=== PATIENT | male | born 1950 | race Caucasian/White ===

== ENCOUNTER → 2020-02-07 | Outpatient (CLI) | payer OTHER ==
[~2020-02-07] VITALS: Ht 180.3 cm; Wt 102.1 kg
[~2020-02-07] MED LIST: ALLEGRA60 MG; AMPYRA10 MG PO; B COMPLEX1 EACH PO; BUPROPION XL300 MG PO; CALCIUM-VITAMI1 EACH PO; FINASTERIDE5 MG PO; FISHOIL; FLEXERIL PO; FLOMAX; LEXAPRO; LINZESS290 MCG PO; LOSARTAN-HCTZ1 EACH PO; LYRICA 50 MG50 MG PO; MULTIVITAMINS; MYRBETRIQ50 MG PO; NORCO 5-325 TA1 EACH PO; REQUIP5 MG PO; RITALIN20 MG PO; TESTIM5 GM
--- NOTE | ~2020-02-07 | HPC ---
[facility] [place] [address] PAIN MANAGEMENT CONSULTATION Name: SAVANA CAPELLAN Room #: REG [facility] Coco#: [id number] Admission: 02/07/20 Attend Phys: Alfredo Mendez DO Discharge: Date of : 46 Report #: [id number] THIS REPORT FOR: cc: Satish Alvarez,Alfredo Campbell DO ~ CC: Destiny Alvarez DATE OF SERVICE: 02/07/2020 CHIEF COMPLAINT: Low back pain, right lower extremity pain with paresthesias. HISTORY OF PRESENT ILLNESS: As you know, the patient is a very pleasant 70-year-old male who has been referred to our service for chronic lumbar radiculopathy. The patient states the pain began somewhere in spring. He denies any specific injury or trauma that may have led to symptom development. Originally, he believes his symptoms were related to his multiple sclerosis. He continues to experience symptoms more consistent with lumbar radiculopathy. He trialed conservative treatment options, which unfortunately failed. He sought evaluation through his nurse practitioner, Destiny Courtney, who referred the patient to our clinic after undergoing MRI of the lumbar spine, which showed changes consistent with the patient's pathology and distribution of pain. The patient has trialed conservative [id number]-[id number] medications, rest and relaxation without efficacy. He was put on medications for pain control, but this did not gain much in the way of analgesic benefit. The patient indicates today pain is continuous. He describes the pain as burning, sharp, numbness and tingling. Places current pain score at 5-6/10, daily average of 5-6/10, worst the pain has been is 7/10. The patient states that being on his feet and standing any length of time exacerbates symptoms, lying down tends to improve pain. He has been referred to our service to discuss treatment options for suspected right lumbar radiculopathy. PAST MEDICAL HISTORY: 1. Hypertension. 2. Melanoma. 3. Chronic constipation. 4. Multiple sclerosis. PAST SURGICAL HISTORY: 1. Excision of melanoma. 2. Sacroplasty. SOCIAL HISTORY: The patient denies tobacco, alcohol, IV or illicit drug use. [address] [address] PAIN MANAGEMENT CONSULTATION Name: SAVANA CAPELLAN Room #: REG [facility].#: [id number] Admission: 02/07/20 Attend Phys: lAfredo Mendez DO Discharge: Date of : 46 Report #: [id number] He is retired, but is working part-time at the [employer]. He is working, not receiving workmen's compensation nor is trying to obtain discrete benefits. He is not in litigation in regards to pain. He is accompanied by his , present in room today. REVIEW OF SYSTEMS: Positive for fatigue and weakness, wearing corrective eyewear, blurred and double vision secondary to his MS, cataracts, constipation interspersed with loose stool, frequent urination, nocturia, change of force or stream in urination, sexual difficulty, numbness and tingling sensations, memory loss, nervousness, depression and bruising tendencies. All other review of systems negative per 12-point review of systems other than those listed in history of present illness. Pain impact score 48/70 indicating moderate interference to severe interference of daily activities secondary to pain. ALLERGIES: No known drug allergies. CURRENT MEDICATIONS: Finasteride 5 mg per day, calcium carbonate 1 tab per day, vitamin B complex 1 tab per day, Ritalin 20 mg b.i.d., Requip 5 mg once a day, pregabalin 50 mg twice a day, Ampyra 10 mg twice a day, bupropion XL 300 mg once a day, Myrbetriq 50 mg once a day, losartan/hydrochlorothiazide 50/12.5 mg once a day, Linzess 290 mcg per day, multivitamin 1 tab per day, tamsulosin 0.4 mg once a day, fexofenadine 60 mg once a day. PQRS: The patient has osteoarthritic changes of the lumbar spine, bilateral shoulders. No rheumatoid arthritis. The patient is placing current pain score at 5-6/10. He is a fall risk, but has not had a fall in the last 3 months. He is not on blood thinners, but is treated for hypertension. He is on chronic opioids, has a low opioid addiction potential based on our assessment tool. Pain impact score of 48/70, moderate to severe interference of daily activities secondary to pain. IMAGING: MRI of the lumbar spine obtained 11/23/2018 shows multilevel degenerative changes and facet arthropathy. There is [id number]-[id number] left foraminal stenosis at L1-2, severe right foraminal stenosis at L3-4, severe right foraminal stenosis at L4-5. There is evidence of bilateral sacral fractures with evidence of kyphoplasty at S1-2. PHYSICAL EXAMINATION: VITAL SIGNS: Blood pressure 136/66, pulse is 96, respiratory rate 18 and unlabored. The patient is 97% on room air. Height 5 feet 11 inches tall, weight 225 pounds, BMI calculated at 31.4. GENERAL: Well-developed, well-nourished, well-hydrated 70-year-old male who appears stated age. He is placing current pain score anywhere from 5-6/10. HEENT: Normocephalic, atraumatic. Pupils equal, round and reactive. Speech is [facility] [address] [place] [address] PAIN MANAGEMENT CONSULTATION Name: SAVANA CAPELLAN Room #: REG [facility]#: [id number] Admission: 02/07/20 Attend Phys: Alfredo Mendez DO Discharge: Date of : 46 Report #: [id number] fluent for patient. NEUROLOGIC: Cranial nerves 2-12 appear grossly intact. LUNGS: Appear clear. He is able to complete sentences. There are no active wheezes, rhonchi or rales. CARDIOVASCULAR: Regular. No appreciable gallop. ABDOMEN: Soft, nontender. EXTREMITIES: Show no clubbing, no cyanosis. No appreciable edema. MUSCULOSKELETAL: Lower extremity strength is decreased bilaterally. This appears to be related to his underlying disease process. He does have an unusual gait, which appears to be more shuffling in nature consistent with multiple sclerosis. Seated straight leg raising positive on the right. Supine straight leg raising positive on the right. Efrain's test is negative. Modified Gaenslen's positive for axial low back pain. Ankle clonus negative. Babinski is negative. Lumbar provocation testing is met with increasing axial back pain. ASSESSMENT: 1. Lumbar radiculopathy. 2. 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 3. Severe facet arthropathy of the lumbar spine. 4. Lumbosacral spondylosis with radiculopathy. 5. Chronic intractable pain. PLAN: 1. Based on today's physical exam and history the patient has provided, the description the patient uses in regards to pain as well as the distribution of symptoms involving the right lower extremity, it would appear that the patient is suffering from lumbar radiculopathy secondary to foraminal stenosis. He has some mild central canal stenosis based on his imaging of 2018. Given the fact that he has not had any significant change in his medical history and no recent falls, I am not concerned of significant worsening of the central canal stenosis, though he had severe foraminal stenosis nearly a year ago and this has likely progressed and thus the source of the patient's symptoms. After we discussed the findings of his MRI and how they correlate to his symptoms, we then discussed treatment options. The following was discussed with the patient today. We discussed physical therapy, stretching exercises, core strengthening as a treatment option. We discussed medication management, adding neuropathic pain medication such as amitriptyline, nortriptyline, Cymbalta, Lyrica or gabapentin, but understanding that these medications could also contribute to his underlying multiple sclerosis effects and potentially worsen his movement disorder and potentially even worsen cognition. We also discussed lumbar epidural injection, for which the patient was referred to our clinic. We discussed spinal cord stimulator therapy and ultimately surgical options. After reviewing risks and benefits of all proposed treatment options, the patient chose to begin with lumbar epidural injection under fluoroscopic guidance. [address] [address] PAIN MANAGEMENT CONSULTATION Name: SAVANA CAPELLAN Room #: REG [facility]#: [id number] Admission: 02/07/20 Attend Phys: Alfredo Mendez DO Discharge: Date of : 46 Report #: [id number] 2. The patient was advised risks and benefits of a lumbar epidural injection. These risks include but are not necessarily limited to bleeding, bruising, infection, worsening pain, no relief of pain, also risk of temporary or permanent muscle weakness, temporary or permanent nerve damage, possible paralysis and . The patient states he understood and wished to proceed. 3. I did provide the patient with information about spinal cord stimulator technology today. I gave information both in written and digital form that he could review at his earliest convenience. The patient and I will discuss this at followup visit if he wishes to progress to the possibility of trial implantation. He wishes to trial the more conservative approach initially. If this is ineffective, then look forward to a more aggressive treatment stance. 4. We will see the patient back in followup visit on an as needed basis for possible next in the series of epidural injections. We are hopeful the patient will see good and prolonged benefit with today's procedure. 5. We wish to thank nurse practitioner, Destiny Courtney, for the opportunity to see this patient in consultation. We will keep you apprised of his response to treatment as we address lumbar radicular symptoms secondary to severe neural foraminal stenosis. Again, we wish to thank you for the opportunity to see this patient in consultation. PROCEDURE NOTE DESCRIPTION OF PROCEDURE: L5-S1 right paramedian epidural steroid injection under fluoroscopic guidance. This is the first procedure of the first series that the patient is undergoing. After obtaining written consent, the patient was taken back to the fluoroscopy suite, placed in a prone position with pillow under the abdomen to decrease lumbar lordosis. The skin overlying the lumbosacral area was then prepped and draped in aseptic fashion. The L5-S1 vertebral interspace was then identified by AP fluoroscopy. The skin and subcutaneous tissue overlying the target site of injection was anesthetized with 3 mL 1% lidocaine. A 20-gauge 3-1/2 inch Tuohy needle was then advanced under fluoroscopic guidance towards the epidural space using a right paramedian approach. The epidural space was identified using loss of resistance to air technique. After negative aspiration for heme or cerebrospinal fluid, a total of 1 mL of Omnipaque was injected. A lumbar epidurogram was confirmed using both AP and lateral fluoroscopy. After negative aspiration for heme or cerebrospinal fluid, 5 mL of a solution containing 2 mL 40 mg per mL, 80 mg total triamcinolone along with 3 mL of lidocaine 1% was injected in increments. Contrast spread was noted posterior epidural space. The needle was then retracted approximately half way and needle tract flushed with 1 mL of 1% lidocaine. Needle was then removed. [facility] [place] [address] PAIN MANAGEMENT CONSULTATION Name: CAPELLAN,SAVANA Verito Room #: REG [facility]#: [id number] Admission: 02/07/20 Attend Phys: Alfredo Mendez DO Discharge: Date of : 46 Report #: [id number] There were no apparent sensory or motor deficits in the lower extremity following the procedure. A sterile bandage was placed over the injection site. The heart rate, pulse, oximetry and blood pressure were continuously monitored after the procedure. There were no apparent complications. The patient tolerated the procedure well and was carefully escorted to the recovery room in stable condition. There were no apparent complications. After meeting discharge criteria, the patient was then discharged home. By: [id number] Alfredo Mendez DO /nt
[2020-02-07 08:29] VITALS: BP 136/66
--- NOTE | 2020-02-07 08:31 | NUR ---
Pain Clinic Assessment: 1. History of Osteoarthritis: Not Applicable History of Rheumatoid Arthritis: Not Applicable 2. Height: 5 ft. 11 in. 180.3 cm. Weight: 225.0 lb. oz. 102.060 kg. Patient's BMI: 31.4 3. Vital Signs: BP: 136/66 Pulse: 96 Resp: 18 Temp: 02 Sat: 97 ECG Mon: 4. Pain Intensity: 5-6 5. Fall Risk: Dizziness: Needs help standing or walking: Fallen in the last 3 months: Fall risk comments: 6. Patient on Blood Thinner: None 7. History of Hypertension: Y 8. Opioid Therapy greater than 6 weeks: Y Opiate Contract Signed: 9. Risk Assessment Tool Provided: LOW-3 10. Functional Assessment Tool: 48/ 11. Recreational Drug Use: Never Drug Type: Tobacco Use: Never Smoker Tobacco Type: Amount or Packs/day: How Many Years: Alcohol Use: No Frequency: Quant:
== END | disposition home or self-care (01) ==
LOC: PAIN 06:40
PROVIDERS: ATTEND Anesthesiology Pain Medicine
DX: M47.27 Other spondylosis with radiculopathy, lumbosacral region (principal); M48.061 Spinal stenosis, lumbar region without neurogenic claudication; M47.26 Other spondylosis with radiculopathy, lumbar region; G89.29 Other chronic pain; G35 Multiple sclerosis; I10 Essential (primary) hypertension; M19.90 Unspecified osteoarthritis, unspecified site; Z98.890 Other specified postprocedural states; Z87.891 Personal history of nicotine dependence; Z79.891 Long term (current) use of opiate analgesic; Z85.820 Personal history of malignant melanoma of skin; Z79.899 Other long term (current) drug therapy

== ENCOUNTER → 2020-03-21 | Outpatient (CLI) | payer OTHER ==
[~2020-03-21] VITALS: Ht 180.3 cm; Wt 98.4 kg
[~2020-03-21] MED LIST changes: +MOBIC15 MG PO
--- NOTE | ~2020-03-21 | HPC ---
[address] [address] PAIN MANAGEMENT CONSULTATION Name: SAVANA CAPELLAN Room #: REG [facility]#: [id number] Admission: 03/21/20 Attend Phys: Alfredo Mendez DO Discharge: Date of : 46 Report #: [id number] CC: Destiny Alvarez DATE OF SERVICE: 03/27/2020 CHIEF COMPLAINT: Low back pain, right lower extremity pain and paresthesias. HISTORY OF PRESENT ILLNESS: As you know, the patient is a 70-year-old male who has returned today in followup visit to undergo lumbar epidural injection under fluoroscopic guidance. The most recent epidural injection provided on 02/07/2020 gave improvement in symptoms of 75%. Unfortunately, his symptoms recurred. He returns today to undergo next in the series of epidural injections. He also wishes to discuss further spinal cord stimulator therapy. He has been deemed a nonsurgical candidate given his concomitant illnesses. He returns to discuss the spinal cord stimulator and undergo next in the series of lumbar epidural injections. ALLERGIES: No known drug allergies. CURRENT MEDICATIONS: See extensive list in chart. SOCIAL HISTORY: The patient denies tobacco, alcohol, IV or illicit drug use. He is retired, but is working part-time at [employer]. He is accompanied by his , present in room today. IMAGING: No new imaging available. PQRS: The patient has osteoarthritic changes of the lumbar spine, bilateral shoulders. No rheumatoid arthritis. He is placing his current pain score 5-6/10, not a fall risk, has not had a fall in last 3 months, not on blood thinners, but is treated for hypertension. He is on chronic opioids with a low opiate addiction potential. Pain impact 48/70, severe interference of daily activities secondary to pain. PHYSICAL EXAMINATION: VITAL SIGNS: Blood pressure 140/72, pulse 50, respiratory rate 16 and unlabored. The patient is 96% on room air. Height 5 feet 11 inches tall, weight 217 pounds, BMI calculated 30.3. GENERAL: A well-developed, well-nourished, well-hydrated 70-year-old male appearing stated age, pain is rated 5-6/10. HEENT: Normocephalic, atraumatic. EXTREMITIES: Show no clubbing, no cyanosis. No appreciable edema. MUSCULOSKELETAL: The patient has lower extremity strength decreased bilaterally. This is due to deconditioning or his underlying disease process. He has an unusual gait, which appears more shuffling in nature consistent with multiple sclerosis. Seated straight leg raising is positive again on the right. Supine straight leg raising positive on the right. Gait does appear to be antalgic favoring that right lower extremity. Modified Gaenslen's positive for axial low back pain. ASSESSMENT: 1. Symptomatic lumbar radiculopathy. 2. 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 3. Severe facet arthropathy of the lumbar spine. 4. Lumbosacral spondylosis with radiculopathy. 5. Chronic intractable pain. PLAN: 1. The patient returns today in followup visit requesting to undergo next in the series of lumbar epidural injections. He reported a 75% improvement in overall pain with previous epidural injection, but unfortunately his symptoms recurred. He returns to undergo the next in the series. He has been advised risks and benefits of the procedure, states understood and wished to proceed. 2. The patient was given information about spinal cord stimulator therapy and its risks and benefits. The patient was given information both in digital and written form to review on his own. He is interested in moving forward with prior authorizations to undergo the procedure as he is deemed a nonsurgical candidate given his underlying multiple sclerosis. He does wish to move forward with a trial to determine if this device could provide him improved analgesic benefit. The patient was advised he will need to follow up with Psychiatry. Once he has completed his psychiatric evaluation and he is deemed an appropriate psychological candidate to undergo a spinal cord stimulator, we would have him return to review those findings and then begin the scheduling process. He was given the names and numbers of psychiatrists in the area to be evaluated. Once he has this scheduled, he is to contact our clinic, so we can monitor for the results of that consultation. No medication changes made at today's visit. The patient will continue current medical therapy as prior prescribed. 4. We will see the patient back in followup visit once he has completed the psychiatric evaluation, we will review those findings. If he is deemed an appropriate candidate from a psychiatric standpoint, we will then move forward with scheduling a trial implantation. PROCEDURE NOTE: DESCRIPTION OF PROCEDURE: L5-S1 right paramedian epidural steroid injection under fluoroscopic guidance. This is the second procedure of the first series that the patient is undergoing. After obtaining written consent, the patient was taken back to the fluoroscopy suite, placed in a prone position with pillow under the abdomen to decrease lumbar lordosis. The skin overlying the lumbosacral area was then prepped and draped in aseptic fashion. The L5-S1 vertebral interspace was then identified by AP fluoroscopy. The skin and subcutaneous tissue overlying the target site of injection was anesthetized with 3 mL 1% lidocaine. A 20-gauge 3-1/2 inch Tuohy needle was then advanced under fluoroscopic guidance towards the epidural space using a left parasagittal approach. The epidural space was identified using loss of resistance to air technique. After negative aspiration for heme or cerebrospinal fluid, a total of 1 mL of Omnipaque was injected. A lumbar epidurogram was confirmed using both AP and lateral fluoroscopy. After negative aspiration for heme or cerebrospinal fluid, 5 mL of a solution containing 2 mL 40 mg per mL, 80 mg total triamcinolone along with 3 mL of lidocaine 1% was injected in increments. Contrast spread was noted posterior epidural space. The needle was then retracted approximately half way and needle tract flushed with 1 mL of 1% lidocaine. Needle was then removed. There were no apparent sensory or motor deficits in the lower extremity following the procedure. A sterile bandage was placed over the injection site. The heart rate, pulse, oximetry and blood pressure were continuously monitored after the procedure. There were no apparent complications. The patient tolerated the procedure well and was carefully escorted to the recovery room in stable condition. There were no apparent complications. After meeting discharge criteria, the patient was then discharged home. By: [id number] Alfredo Mendez DO /nt
[2020-03-21 14:28] VITALS: BP 140/72
--- NOTE | 2020-03-21 14:52 | NUR ---
Pain Clinic Assessment: 1. History of Osteoarthritis: Not Applicable History of Rheumatoid Arthritis: Not Applicable 2. Height: 5 ft. 11 in. 180.3 cm. Weight: 217.0 lb. oz. 98.431 kg. Patient's BMI: 30.3 3. Vital Signs: BP: 140/72 Pulse: 50 Resp: 16 Temp: 02 Sat: 96 ECG Mon: 4. Pain Intensity: 5-6 5. Fall Risk: Dizziness: N Needs help standing or walking: N Fallen in the last 3 months: N Fall risk comments: 6. Patient on Blood Thinner: None 7. History of Hypertension: Y 8. Opioid Therapy greater than 6 weeks: Y Opiate Contract Signed: 9. Risk Assessment Tool Provided: LOW-3 10. Functional Assessment Tool: 11. Recreational Drug Use: Never Drug Type: Tobacco Use: Never Smoker Tobacco Type: Amount or Packs/day: How Many Years: Alcohol Use: No Frequency: Quant:
== END | disposition home or self-care (01) ==
LOC: PAIN 06:43
PROVIDERS: ATTEND Anesthesiology Pain Medicine
DX: M47.27 Other spondylosis with radiculopathy, lumbosacral region (principal); M47.26 Other spondylosis with radiculopathy, lumbar region; M48.061 Spinal stenosis, lumbar region without neurogenic claudication; G89.29 Other chronic pain; I10 Essential (primary) hypertension; M19.011 Primary osteoarthritis, right shoulder; M19.012 Primary osteoarthritis, left shoulder; Z98.890 Other specified postprocedural states; Z79.899 Other long term (current) drug therapy; Z79.891 Long term (current) use of opiate analgesic

== ENCOUNTER 2020-04-12 10:15 | Emergency (ER) | payer OTHER ==
[~2020-04-12] VITALS: Ht 182.9 cm; Wt 93.9 kg
--- NOTE | ~2020-04-12 | HC ---
[facility] [place] [address] CONSULTATION Name: SAVANA CAPELLAN Room #: DEP [facility]#: [id number] Admission: 04/12/20 Attend Phys: Discharge: 04/12/20 Date of : 46 Report #: [id number] THIS REPORT FOR: cc: Satish Alvarez,Satish Block,José Miguel Solis MD ~ DATE OF SERVICE: 04/12/2020 HISTORY OF PRESENT ILLNESS: This is a 70-year-old male patient whose consultation was requested by Dr. Zimmerman from Emergency Room for evaluation for the possibility of stroke. The patient gives a history that he has a diagnosis of MS made in . He believes he had a spinal tap. He is not sure about MRI. He used to see Dr. Jones, neurologist that used to be here and subsequently in [facility]. He was also in [employer]. He had multiple evaluations who he believes was diametrically opposite. The evaluation done in [employer] did not reveal anything and the evaluation done here indicated that he had MS. 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 He went to [facility] about 10 years ago and subsequently is being followed by Dr. Lozano, a neurologist at [facility]. Today, he had some nonspecific symptoms. He said he is weak on the right side and that is several years' duration. A right facial droop was noticed in the Emergency Room, but we do not know how much is old and how much is new. REVIEW OF SYSTEMS: A 14-point review of system was carried out. The patient had multiple problems. It looks like this patient has problem with pain and he takes Lyrica. Prior to that, he tried gabapentin, but he required higher dosages and it was not very effective. He also takes Ritalin. He says he takes Ritalin not for the fatigue, but because it makes him mentally more sharp. It also helped fatigue. He is looks like on Wellbutrin, but he denies any anxiety or depression. He denies any prior history of stroke. For a long time, he did not take any disease modifying treatment for MS, but subsequently he did take it. That was his relevant 14-point review of system. Review of systems is also positive for restless leg syndrome. PAST MEDICAL HISTORY: Positive for the diagnosis of MS. FAMILY HISTORY: Unremarkable. SOCIAL HISTORY: He does not drink any alcohol or smoke. PHYSICAL EXAMINATION: Indicates he is alert, responsive and he can follow simple commands. His cranial nerve examination 2-12 looks mostly unremarkable. I do not see any gross right facial palsy. 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 Similarly, he can move [facility] [address] [place] [address] CONSULTATION Name: CAPELLANSAVANA Verito Room #: DEP [facility]#: [id number] Admission: 04/12/20 Attend Phys: Discharge: 04/12/20 Date of : 46 Report #: [id number] his legs against gravity. His sensation looks intact, but he says that subjectively it feels different on the right side. His reflexes are present in both lower extremities and upper extremities. There is no meningeal sign. I could not look at the patient's fundus. His hearing and vision looks adequate. Cardiac and respiratory examinations appear unremarkable. LABORATORY DATA: Indicates normal sodium. His TSH is normal. His CBC is also unremarkable. IMPRESSION AND PLAN: It is unlikely this patient had a stroke or a transient ischemic attack. A possibility of aggravation of multiple sclerosis was considered, but since MRI is unremarkable, that is less likely to be multiple sclerosis or at least an active multiple sclerosis. Might mention I had talked to the Emergency Room physician and asked them to do an MRI of the brain with and without contrast and if his BUN and creatinine and GFR is normal and after explaining to them, slight chance of allergic reaction as well as irreversible dermatological condition. They did do the MRI and his MRI is unremarkable. I am not sure what the etiology of the patient's symptoms is. Since MS can affect the spine, next thing will be to check his spine for any lesion of the MS. His neurologist and his records are at [facility]. If he wants to go there and wants to get workup there, he needs to contact his neurologist, Dr. Lozano. I did not make the patient walk, but I think we should make the patient walk to make sure he is stable on his feet and after that he can be admitted here or with Dr. Lozano for further workup, especially with MS. I gave all the options to the family and we will talk to Dr. Zimmerman after I had an opportunity to review the films once the consult is put in under my patient. Thank you very much for this referral. By: [id number] José Miguel Chauhan MD /nt
[2020-04-12 10:37] LABS: HEMATOCRIT 41.7 % (42.0-52.0); HEMOGLOBIN 14.1 gm/dL (14.0-18.0); MCH 32.3 pg (26.0-34.0); MCHC 33.8 g/dL (28.0-37.0); MCV 95.6 fL (80.0-100.0); PLATELET COUNT 232 thou/uL (150-400); RBC 4.36 mil/uL (4.50-6.00); RDW 15.9 % (10.5-14.5); WBC 7.3 thou/uL (4.0-11.0)
[2020-04-12 10:40] LABS: ANION GAP 9 mmol/L (7-16); BUN 24 mg/dL (7-18); CALCIUM 9.1 mg/dL (8.5-10.1); CHLORIDE 106 mmol/L (98-107); CO2 29 mmol/L (21-32); CREATININE 1.3 mg/dL (0.7-1.3); GLUCOSE 105 mg/dL (74-106); POTASSIUM 4.1 mmol/L (3.5-5.1); SODIUM 144 mmol/L (136-145)
[2020-04-12 10:46] LABS: APTT 27.3 Seconds (24.5-32.8); PROTIME 10.1 Seconds (9.3-11.4)
[2020-04-12 10:51] LABS: MAGNESIUM 2.2 mg/dL (1.8-2.4); SGOT 49 U/L (15-37); SGPT 44 U/L (30-65); TOTAL BILIRUBIN 0.7 mg/dL (0.2-1.0); TOTAL PROTEIN 7.4 g/dL (6.4-8.2); TROPONIN-I <0.06 ng/mL (<0.06)
[2020-04-12 11:16] LABS: ABSOLUTE NEUTROPHILS 5.5 thou/uL (1.4-8.2); PLATELET ESTIMATE NORMAL
[2020-04-12 13:50] LABS: URINE BILIRUBIN NEGATIVE (Negative); URINE BLOOD NEGATIVE (Negative); URINE CLARITY CLEAR; URINE COLOR YELLOW; URINE GLUCOSE-RANDOM* NEGATIVE (Negative); URINE KETONES NEGATIVE (Negative); URINE LEUKOCYTES-REFLEX NEGATIVE (Negative); URINE NITRITE-REFLEX NEGATIVE (Negative); URINE PROTEIN (DIPSTICK) NEGATIVE (Negative); URINE UROBILINOGEN 0.2 E.U./dl (0.2-1.0)
[2020-04-12 13:56] LABS: AMP/METHAMP Negative (Negative); BARBITURATES Negative (Negative); BENZODIAZEPINES Negative (Negative); COCAINE Negative (Negative); METHADONE Negative (Negative); OPIATES Negative (Negative); PCP Negative (Negative)
[2020-04-12 14:14] VITALS: BP 134/97
--- NOTE | 2020-04-12 15:35 | EKG ---
[facility] [place] [address] ELECTROCARDIOGRAM REPORT Name: SAVANA CAPELLAN Room #: DEP [facility]#: [id number] Admission: 04/12/20 Attend Phys: Discharge: 04/12/20 Date of : 46 Report #: [id number] THIS REPORT FOR: cc: Satish Alvarez Steven F. 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
== END 2020-04-12 14:17 | disposition home or self-care (01) ==
LOC: ER 10:15
PROVIDERS: Emergency Medicine
DX: R29.810 Facial weakness (principal); G35 Multiple sclerosis; R27.8 Other lack of coordination; Z79.899 Other long term (current) drug therapy

== ENCOUNTER → 2020-09-11 | Outpatient (CLI) | payer OTHER ==
[~2020-09-11] VITALS: Ht 180.3 cm; Wt 92.7 kg
[~2020-09-11] MED LIST changes: +HYDROCODON-ACE1 EAC7 PO; +LIDODERM1 EACH TOP; +NORCO5 PO; +TRAMADOL 50 MG50 MG PO
--- NOTE | ~2020-09-11 | HPC ---
[facility] [place] [address] PAIN MANAGEMENT CONSULTATION Name: SAVANA CAPELLAN Room #: REG [facility].#: [id number] Admission: 09/11/20 Attend Phys: Alfredo Mendez DO Discharge: Date of : 46 Report #: [id number] THIS REPORT FOR: cc: Satish Alvarez Steven F. DO Johnson, James E. DO ~ DATE OF SERVICE: 09/11/2020 CHIEF COMPLAINT: Low back pain, right buttock and posterolateral thigh pain. HISTORY OF PRESENT ILLNESS: As you know, the patient is a 70-year-old male who suffers from multiple sclerosis that has been progressing. He continues to experience pain even after undergoing a sacroplasty to address insufficiency fractures of the sacrum. He reports pain that begins in the low back, radiates to the right hip, right thigh and down the leg. He reports some numbness and tingling all the way into the foot. He reports today pain score 7/10. He states pain is constant, throbbing in sensation, exacerbated with standing, walking, improves with lying down and sitting. We had obtained authorizations from the patient's third democrat payer to undergo a spinal cord stimulator trial implantation, but we have had some communication conflicts between the patient and our staff. He returns today to begin scheduling of that process. He wishes to discuss other treatment options to address ongoing pain. The patient states this pain is so bad, he cannot continue to work and wants a release from work and FMLA paperwork. I advised the patient we do not provide FMLA paperwork. This would have to be provided through his PCP as we have only seen the patient a couple of times. I believe he needs to follow up with his PCP in regards to this. He is here today to make some adjustments in medication management if at all possible as we await authorization and scheduling to establish a spinal cord stimulator trial implant. ALLERGIES: No known drug allergies. CURRENT MEDICATIONS: See extensive list in chart. SOCIAL HISTORY: The patient denies tobacco, alcohol, IV or illicit drug use. He is retired, working part-time at [employer], but has not been there in some time because of his ongoing symptoms. He is accompanied by his daughter present in room today. IMAGING: No new imaging available. PQRS: The patient has arthritic changes of the lumbar spine, bilateral shoulders, bilateral hips. No rheumatoid arthritis. Placing current pain score at 7/10. He is a fall risk, but has not had a fall in last 3 months. He is treated for hypertension, but not on any blood thinners. He is on chronic opioids, has a low opiate addiction potential. Pain impact is 48/70, moderate [address] [address] PAIN MANAGEMENT CONSULTATION Name: SAVANA CAPELLAN Room #: REG [facility]#: [id number] Admission: 09/11/20 Attend Phys: Alfredo Mendez DO Discharge: Date of : 46 Report #: [id number] to severe interference of daily activities secondary to pain. PHYSICAL EXAMINATION: VITAL SIGNS: Blood pressure 127/65, pulse 50, respiratory rate 20 and unlabored. The patient is 99% on room air. Height 5 feet 11 inches tall, weight 204.4 pounds, BMI calculated 28.5. GENERAL: Well-developed, well-nourished, well-hydrated 70-year-old male, appears stated age. He is in no acute distress, awake, alert and oriented x 3. Pain is rated at 7/10. HEENT: Normocephalic, atraumatic. Pupils are round. Extraocular muscles are intact. The patient is in a mask in compliance with COVID-19 regulations. EXTREMITIES: Show no clubbing, no cyanosis, no edema. MUSCULOSKELETAL: The patient has a palpatory tenderness over the paraspinal musculature of lower lumbar spine, right greater than left. Seated straight leg raising negative. Supine straight leg raising positive on the right. Efrain's test negative. Gait is antalgic favoring right lower extremity over left. Muscle bulk and tone appears symmetrical, but deconditioning noted bilaterally. ASSESSMENT: 1. Symptomatic lumbar radiculopathy. 2. Severe neural foraminal stenosis of lumbar spine. 3. Severe facet arthropathy of the lumbar spine. 4. Lumbosacral spondylosis with radiculopathy. 5. Chronic intractable pain. PLAN: 1. The patient returns today in followup visit to begin scheduling a spinal cord stimulator trial implantation. We have had multiple contacts with the patient and the patient's , but they have yet to commit to undergoing the procedure. They report that they have been contacting our clinic trying to establish an appointment stating that they are not receiving call back. I am pleased the patient is here today, we can make the scheduled standing appointment for 09/18/2020 to undergo the spinal cord stimulator trial. The patient is agreeable. We will be seeing him back to undergo this trial on 09/18/2020. 2. The patient requests a change in his medications. Currently, he is taking tramadol, but has not noted this to be working beneficially. He has had some hydrocodone he has been taking and feels it is more effective and wishes an adjustment to hydrocodone for severe pain and utilizing tramadol for a lower level of pain. For the temporary treatment, I do not see a problem with providing the increase to hydrocodone with the understanding that we will wean off that medication as quickly as possible. Once the spinal cord stimulator has been trialed and it is successful, then go to permanent implant. 3. We reviewed the fact that opiate medications are being used to provide analgesia adequate to support activities of daily living, not attempting to achieve a specific pain score on the 0-10 Visual Analog Scale. The current [facility] [address] [place] [address] PAIN MANAGEMENT CONSULTATION Name: SAVANA CAPELLAN Room #: REG [facility]#: [id number] Admission: 09/11/20 Attend Phys: Alfredo Mendez DO Discharge: Date of : 46 Report #: [id number] opiate medications are providing sufficient analgesia to allow the patient to participate in activities of daily living. The patient is not exhibiting any aberrant behavior suggestive of drug diversion. The patient is not having any adverse reactions to medications. The patient is not suffering from daytime somnolence or mental acuity changes. The patient is managing opiate-induced constipation with appropriate [id number] agents and dietary considerations. The patient was counseled on concern for caution with operating a motor vehicle while using opiate medications. A physical exam was performed and the patient's functional status was evaluated. All patients with back pain were advised against the bed rest greater than 4 days and were advised to return to normal activities. Pain score assessment was noted and the treatment plan was reviewed with the patient. All current medications, both prescribed and OTC were reviewed and reconciled on the electronic medical record. Tobacco screening was accomplished and smoking cessation was advised when indicated. BMI was noted and diet/exercise modification was recommended for all patients following outside normal parameters. I reviewed with the patient today their responsibilities to safeguard prescription medications, reviewed their responsibility to utilize medications only as prescribed by the physician. They are to seek and receive pain medications only from 1 physician group ([facility]). They are to use 1 pharmacy and keep the clinic informed if they change pharmacies. Their responsibilities include making followup visits in a timely fashion and to avoid abrupt discontinuation of medication usage. Their responsibilities further include bringing their medications (bottles from the pharmacy with residual pills) to the visit for possible confirmation of pill counts and the patient understands it is their responsibility to submit to random drug screens to ensure both that the medications prescribed are present, and that no other controlled substances are present. All prescriptions provided today were generated electronically. 4. The patient was provided prescription of Blachly 5/325 one-half tab to 1 tab p.o. q. 12 hours p.r.n. for pain. I have given the patient #60 tablets to release today, no refills. The patient was advised to watch for side effects of sleepiness, disorientation, confusion, mental slowing and constipation with its use. If he notes these side effects, discontinue immediately. 5. The patient was provided refill prescription of his tramadol that he is taking for mild pain. He was given #50 tablets to take up to 3 times a day, #60, no refills. Again, the patient is to watch for any side effects. If he notes any side effects, discontinue use. 6. The patient was provided prescription of Mobic 15 mg dose 1 daily. He was given #30 with 2 refills, 3 months' worth of medication. [facility] [address] [place] [address] PAIN MANAGEMENT CONSULTATION Name: SAVANA CAPELLAN Room #: REG [facility]#: [id number] Admission: 09/11/20 Attend Phys: Alfredo Mendez DO Discharge: Date of : 46 Report #: [id number] 7. We plan to see the patient back in followup visit on 09/18/2020 to undergo a spinal cord stimulator trial implantation. By: [id number] Alfredo Mendez DO /nt
[2020-09-11 11:07] VITALS: BP 127/65
--- NOTE | 2020-09-11 11:26 | NUR ---
Pain Clinic Assessment: 1. History of Osteoarthritis: Not Applicable History of Rheumatoid Arthritis: Not Applicable 2. Height: 5 ft. 11 in. 180.3 cm. Weight: 204.4 lb. oz. 92.715 kg. Patient's BMI: 28.5 3. Vital Signs: BP: 127/65 Pulse: 50 Resp: 20 Temp: 02 Sat: 99 ECG Mon: 4. Pain Intensity: 7 5. Fall Risk: Dizziness: N Needs help standing or walking: Y Fallen in the last 3 months: N Fall risk comments: 6. Patient on Blood Thinner: None 7. History of Hypertension: Y 8. Opioid Therapy greater than 6 weeks: Y Opiate Contract Signed: 9. Risk Assessment Tool Provided: LOW-3 10. Functional Assessment Tool: 48 11. Recreational Drug Use: Never Drug Type: Tobacco Use: Never Smoker Tobacco Type: Amount or Packs/day: How Many Years: Alcohol Use: No Frequency: Quant:
== END ==
LOC: PAIN 05-15 14:01
PROVIDERS: ATTEND Anesthesiology Pain Medicine
DX: M47.27 Other spondylosis with radiculopathy, lumbosacral region (principal); M48.061 Spinal stenosis, lumbar region without neurogenic claudication; G89.29 Other chronic pain

== ENCOUNTER → 2020-09-18 | Outpatient (CLI) | payer OTHER ==
[~2020-09-18] VITALS: Ht 180.3 cm; Wt 92.7 kg
[2020-09-18 07:20] VITALS: BP 140/70
--- NOTE | 2020-09-18 07:27 | NUR ---
Pain Clinic Assessment: 1. History of Osteoarthritis: Not Applicable History of Rheumatoid Arthritis: Not Applicable 2. Height: 5 ft. 11 in. 180.3 cm. Weight: 204.4 lb. oz. 92.715 kg. Patient's BMI: 28.5 3. Vital Signs: BP: 140/70 Pulse: 41 Resp: 16 Temp: 02 Sat: 98 ECG Mon: 4. Pain Intensity: 4 5. Fall Risk: Dizziness: N Needs help standing or walking: N Fallen in the last 3 months: N Fall risk comments: 6. Patient on Blood Thinner: None 7. History of Hypertension: Y 8. Opioid Therapy greater than 6 weeks: Y Opiate Contract Signed: 9. Risk Assessment Tool Provided: LOW-3 10. Functional Assessment Tool: 11. Recreational Drug Use: Never Drug Type: Tobacco Use: Never Smoker Tobacco Type: Amount or Packs/day: How Many Years: Alcohol Use: No Frequency: Quant:
--- NOTE | 2020-09-18 12:33 | HPC ---
[address] [address] PAIN MANAGEMENT CONSULTATION Name: SAVANA CAPELLAN [id number] Admission: 09/18/20 Attend Phys: Alfredo Mendez DO Discharge: Date of : 48 Report #: [id number] THIS REPORT FOR: cc: Satish Alvarez Steven F. DO Johnson, James E. DO ~ DATE OF SERVICE: 09/18/2020 CHIEF COMPLAINT: Low back pain, right lower extremity pain with paresthesias. HISTORY OF PRESENT ILLNESS: As you know, the patient is a 70-year-old male returning in followup visit to undergo a spinal cord stimulator trial implantation with the [employer] device. The patient has completed all prerequisites to undergo the trial. He returns today in followup visit reporting pain score 4/10. Pain begins in low back, radiates down in the right lower extremity and classic dermatomal distribution. He returns today for implantation of spinal cord stimulator trial leads to determine if the device itself will provide good analgesic benefit. The patient has had no changes in his medical history since our last visit 1 week ago. He continues to participate in daily activities. He has had no changes in his medications, which would preclude us from having the patient undergo the procedure today. ALLERGIES: No known drug allergies. CURRENT MEDICATIONS: See extensive list in chart. SOCIAL HISTORY: The patient denies tobacco, alcohol, IV or illicit drug use. He is retired, but is working part-time at [employer]. He is accompanied by his who is present in room today. IMAGING: No new imaging available. PQRS: The patient has known arthritic changes of the lumbar spine, bilateral shoulders. No rheumatoid arthritis. Placing current pain score 4/10. He is a fall risk, but has not had a fall in last 3 months. He does use ambulatory devices for balance. He is not on any blood thinners, but is treated for hypertension. He is on chronic opioids, has a low opiate addiction potential. Pain impact is 48/70, severe interference of daily activities secondary to pain. PHYSICAL EXAMINATION: VITAL SIGNS: Blood pressure 140/70, pulse is 61, respiratory rate 16 and unlabored. The patient 98% on room air. Height 5 feet 11 inches tall, weight 204.4 pounds, BMI calculated 28.5. GENERAL: Well-developed, well-nourished, well-hydrated 70-year-old male appearing stated age. Pain is rated up to 4/10. HEENT: Normocephalic, atraumatic. Pupils are round [place] [address] PAIN MANAGEMENT CONSULTATION Name: SAVANA CAPELLAN Verito Room #: REG [facility]#: [id number] Admission: 09/18/20 Attend Phys: Alfredo Mendez DO Discharge: Date of : 48 Report #: [id number] patient is wearing a mask in compliance with COVID-19 regulations. EXTREMITIES: Show no clubbing, no cyanosis, no edema. MUSCULOSKELETAL: Lower extremity strength is decreased bilaterally secondary to his underlying disease process. Gait is antalgic and shuffling in nature. Seated straight leg raising is positive on the right. Supine straight leg raising is positive on the right. Modified Gaenslen's test positive for some axial low back pain. ASSESSMENT: 1. Symptomatic lumbar radiculopathy. 2. 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 3. Severe facet arthropathy of the lumbar spine. 4. Lumbosacral spondylosis with radiculopathy. 5. Lumbar degeneration. 6. Chronic intractable pain. PLAN: 1. The patient returns today in followup visit having received authorizations to undergo spinal cord stimulator trial implantation with the [employer] device. The patient has been advised the risks and benefits of this procedure. These risks include but are not necessarily limited to bleeding, bruising, infection, worsening of pain, no relief of pain, also risk of temporary or permanent muscle weakness, temporary or permanent nerve damage, possible paralysis, post-dural puncture headache and . The patient states understood and wished to proceed. 2. No medication changes made at today's visit. The patient will continue current medical therapy as prior prescribed. 3. We plan to see the patient back in followup visit in 1 week. At that time, we will discuss the efficacy of the spinal cord stimulating trial over the past week and explanted the device. He was given the phone numbers of the [employer] device licensing representative today to contact in regard to any questions in regard to pain coverage. If the patient is experiencing any concerning issues such as a possible infection, drainage from the site, increased head or neck pain, weakness of any kind, he is to contact the on-call pain physician. We plan to see him back in 1 week. PROCEDURE NOTE PROCEDURE: Two lead spinal cord stimulator trial under fluoroscopic guidance. DESCRIPTION OF PROCEDURE: After obtaining written consent, a 22-gauge IV Hep-Lock was placed in the patient's upper extremity. The patient was given IV prophylactic antibiotic infused over 30 minutes prior to procedure. The patient was then taken to the fluoroscopy suite, placed in prone position with 2 pillows under the abdomen to decrease lumbar lordosis and accentuate thoracic kyphosis. Cardiopulmonary monitoring was established and the patient's vital signs were [address] [address] PAIN MANAGEMENT CONSULTATION Name: SAVANA CAPELLAN Room #: [facility]#: [id number] Admission: 09/18/20 Attend Phys: Alfredo Mendez DO Discharge: Date of : 48 Report #: [id number] monitored throughout the procedure. The patient's thoracolumbar spine was prepped and draped with chlorhexidine x 3 and draped in sterile fashion. No IV sedation was provided. AP imaging was obtained to identify and rachel the midline positions of the T10 through L2 spinous processes. Skin was anesthetized with 8 mL of preservative-free lidocaine on the right and 8 mL of preservative-free 1% lidocaine on the left. Total volume of 16 mL utilized prior to the introduction of the 14-gauge 4-inch Tuohy needles. Skin entry site was at the approximate level of the T12 vertebral body on the right side. Needle was advanced using a paramedian approach to the right of midline, approximately 45 degree angle. Loss of resistance to air was utilized to verify placement within the epidural space. Epidural space entered at the T12-L1 interspace. Lateral fluoroscopic view was obtained to confirm the position of the tip of the Tuohy needle within the epidural space. Aspiration noted to be negative for heme or cerebrospinal fluid. The patient did not complain of pain or paresthesias during needle placement. Spinal cord stimulating lead was then advanced through the Tuohy needle under direct visualization within the midline. Tip of the stimulating lead was aligned with the inferior endplate of T7 vertebral body. Our attention was then directed to the left side. Skin entry site on the left was at the level of the T12 vertebral body. Needle was advanced using a paramedian approach to the left of midline, approximately 45 degree angle. Loss of resistance to air was utilized to verify placement within the epidural space. Epidural space entered at the T12-L1 interspace. Lateral fluoroscopic view was then obtained to confirm the position of the tip of the Tuohy needle within the epidural space. Aspiration noted to be negative for heme or cerebrospinal fluid. The patient did not complain of pain or paresthesias during needle placement. The spinal cord stimulating lead was then advanced through the Tuohy needle under direct visualization within the midline. The tip of the stimulating lead was aligned with the midpoint of the T8 vertebral body. At this point, temporary extension was then connected to each of the spinal cord stimulating leads. Stimulating testing was performed with the assistance of the [employer] device licensing representative. The stylets were then removed from the leads followed by the Tuohy needles. When both were removed, we checked position rechecked to confirm that the lead position had not changed from its initial positioning. The leads were then anchored to the patient's back with Mastisol, Steri-Strips, and OpSite bandaging. The patient tolerated procedure well, carefully escorted to recovery room in stable condition. He was able to purposely move all 4 extremities after the procedure. He has no pain or paresthesias with the implantation. We spent 30 minutes of time programming the stimulator for optimization of pain capture and coverage. This was all done with the device licensing representative and myself in the room. After completing this, the patient was given the following information. [address] [address] PAIN MANAGEMENT CONSULTATION Name: SAVANA CAPELLAN Room #: REG [facility]#: [id number] Admission: 09/18/20 Attend Phys: Alfredo Mendez DO Discharge: Date of : 48 Report #: [id number] Device licensing representative provided their contact information. He will be contacting the patient on a daily basis to confirm good pattern of capture at an acceptable voltage with the device. If the patient is having any issues, he is to contact that phone number in regard to his typical pain coverage. If the patient is experiencing any concerning findings, increase neck pain, head pain, drainage from the site, fever, chills, night sweats, any concerns of a possible infection, he is to contact the on-call pain physician. He was given those numbers as well. The patient will be returning to our clinic in 1 week for explantation of device and discuss efficacy. <ELECTRONICALLY SIGNED> By: Alfredo Mendez DO 09/18/20 1233 [id number] Alfredo Mendez DO /nt
== END | disposition home or self-care (01) ==
LOC: PAIN 06:47
PROVIDERS: ATTEND Anesthesiology Pain Medicine
DX: M51.16 Intervertebral disc disorders with radiculopathy, lumbar region (principal); M47.26 Other spondylosis with radiculopathy, lumbar region; M47.27 Other spondylosis with radiculopathy, lumbosacral region; M48.061 Spinal stenosis, lumbar region without neurogenic claudication; G89.29 Other chronic pain; I10 Essential (primary) hypertension; M19.90 Unspecified osteoarthritis, unspecified site; Z98.890 Other specified postprocedural states; Z79.899 Other long term (current) drug therapy; Z79.891 Long term (current) use of opiate analgesic

== ENCOUNTER → 2020-09-25 | Outpatient (CLI) | payer OTHER ==
[~2020-09-25] VITALS: Ht 180.3 cm; Wt 94.2 kg
[~2020-09-25] MED LIST changes: +TOLTERODINE TART2 M1 PO
[2020-09-25 10:48] VITALS: BP 134/74
--- NOTE | 2020-09-25 10:58 | NUR ---
Pain Clinic Assessment: 1. History of Osteoarthritis: Not Applicable History of Rheumatoid Arthritis: Not Applicable 2. Height: 5 ft. 11 in. 180.3 cm. Weight: 207.6 lb. oz. 94.167 kg. Patient's BMI: 29.0 3. Vital Signs: BP: 134/74 Pulse: 56 Resp: 20 Temp: 02 Sat: 97 ECG Mon: 4. Pain Intensity: 4 5. Fall Risk: Dizziness: N Needs help standing or walking: Y Fallen in the last 3 months: N Fall risk comments: 6. Patient on Blood Thinner: None 7. History of Hypertension: Y 8. Opioid Therapy greater than 6 weeks: Y Opiate Contract Signed: 9. Risk Assessment Tool Provided: LOW-3 10. Functional Assessment Tool: 48/ 11. Recreational Drug Use: Never Drug Type: Tobacco Use: Never Smoker Tobacco Type: Amount or Packs/day: How Many Years: Alcohol Use: No Frequency: Quant:
--- NOTE | 2020-09-26 07:42 | HPC ---
[facility] [place] [address] PAIN MANAGEMENT CONSULTATION Name: SAVANA CAPELLAN Room #: REG [facility].#: [id number] Admission: 09/25/20 Attend Phys: Alfredo Mendez DO Discharge: Date of : 46 Report #: [id number] THIS REPORT FOR: cc: Satish Alvarez Steven F. DO Johnson, James E. DO ~ DATE OF SERVICE: 09/25/2020 CHIEF COMPLAINT: Low back pain, right lower extremity pain with paresthesias. HISTORY OF PRESENT ILLNESS: As you know, the patient is a 70-year-old male returning in followup visit for explantation of spinal cord stimulator trial device. The patient reports greater than 50% improvement in overall pain with the device itself and wishes to move forward with permanent implant. He indicates pain level today 4/10. He states that he has been able to participate more fully in daily activities. He was able to ambulate more freely without pain interference and felt that device gave benefit enough that he does wish to move forward with permanent implant. He is yet to establish with Neurosurgery appointments to discuss this further and wishes a referral on to Neurosurgery for a permanent implant. He is here today for explantation of spinal cord stimulator after successful trial. ALLERGIES: No known drug allergies. CURRENT MEDICATIONS: See extensive list in chart. SOCIAL HISTORY: The patient denies tobacco, alcohol, IV or illicit drug use. He is retired. 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 He is accompanied by his daughter present in room today. IMAGING: No new imaging available. PQRS: The patient has known arthritic changes of the lumbar spine, bilateral shoulders, bilateral hips. No rheumatoid arthritis. Placing current pain score 4/10. He is a fall risk, but has not had a fall in last 3 months. He does utilize a roller walker for ambulation. He is not on any blood thinners, but is treated for hypertension. He is on chronic opioids with a low opioid addiction potential based on our assessment tool. Pain impact is 40/70, severe interference of daily activities secondary to pain. PHYSICAL EXAMINATION: VITAL SIGNS: Blood pressure 134/74, pulse 56, respiratory rate 20 and unlabored. The patient is 97% on room air. Height 5 feet 11 inches tall, weight 207.6 pounds, BMI calculated 29.0. GENERAL: Well-developed, well-nourished, well-hydrated 70-year-old male appearing stated age, pain is rated around 4/10. [address] [address] PAIN MANAGEMENT CONSULTATION Name: SAVANA CAPELLAN Room #: REG [facility]#: [id number] Admission: 09/25/20 Attend Phys: Alfredo Mendez DO Discharge: Date of : 46 Report #: [id number] HEENT: Normocephalic, atraumatic. The patient is wearing a mask in compliance with COVID-19 regulations. EXTREMITIES: Show no clubbing, no cyanosis, no edema. MUSCULOSKELETAL: Lower extremity strength is decreased bilaterally again today secondary to underlying disease process of multiple sclerosis. Gait is antalgic and shuffling in nature. This is unchanged from previous evaluations. Seated straight leg raising is positive on the right. Supine straight leg raising positive on the right. Modified Gaenslen's positive for axial low back pain. Ankle clonus negative. Babinski is negative. ASSESSMENT: 1. Symptomatic lumbar radiculopathy. 2. 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 3. Severe facet arthropathy of the lumbar spine. 4. Lumbosacral spondylosis with radiculopathy. 5. Lumbar degeneration. 6. Chronic intractable pain. PLAN: 1. The patient returns today in followup visit reporting greater than 50% improvement in overall pain with the spinal cord stimulator trial that he has just completed. He returns today in followup visit to begin the process of moving forward with permanent implant. He is very happy with the response he has had with the device and wishes to go to a permanent. He is now established with a neurosurgeon and needs those referrals today as well. We are pleased that the patient has done well with the spinal cord stimulator and felt that his symptoms were controlled enough that he wishes to move forward with a permanent implant. We will begin the process of authorizations and referrals. 2. The patient will be referred to see Dr. Andres Barragan with [facility]. The patient to request of Dr. Barragan specifically as his sees Dr. Barragan for her back issues and they feel comfortable with his care. We will be referring the patient over to Dr. Barragan's office for evaluation. I did advise the patient that he would likely see nurse practitioner initially to expedite his process through the scheduling and approval processes for the device. He is agreeable with that plan. I have provided the patient a referral to see Dr. Barragan at all for evaluation for a spinal cord stimulator permanent implant. 3. No medication changes made at today's visit. The patient will continue current medical therapy as prior prescribed. 4. 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 He requests that he will be returning to work after completion of the spinal cord stimulator implants. He will be out for at least what appears to be a month to 2 months based on scheduling processes and timing to get the device in, we will provide that letter indicating that he is limiting his work level due to pain until he can undergo the procedure and have the permanent implant installed. [address] [address] PAIN MANAGEMENT CONSULTATION Name: SAVANA CAPELLAN Room #: REG [facility]..#: [id number] Admission: 09/25/20 Attend Phys: Alfredo Mendez DO Discharge: Date of : 46 Report #: [id number] 5. We are pleased to see the patient has done well with a spinal cord stimulator. We wish him well with the permanent implant. We will see him back in followup visit on an as needed basis. <ELECTRONICALLY SIGNED> By: Alfredo Mendez DO 09/26/20 0742 [id number] 2033 Alfredo Mendez DO /nt
== END ==
LOC: PAIN 06:56
PROVIDERS: ATTEND Anesthesiology Pain Medicine
DX: M47.27 Other spondylosis with radiculopathy, lumbosacral region (principal); G89.29 Other chronic pain; M51.16 Intervertebral disc disorders with radiculopathy, lumbar region; M79.604 Pain in right leg; R20.2 Paresthesia of skin; M48.061 Spinal stenosis, lumbar region without neurogenic claudication